=== PATIENT | male | born 1950 | race Caucasian/White ===

== ENCOUNTER 2020-10-06 07:32 | Outpatient (CLI) | payer MEDICARE, SELFPAY ==
--- NOTE | ~2020-10-06 | CT_ITS ---
EXAMINATION: CT chest abdomen pelvis w con DATE: 10/06/2020 08:22 INDICATION: Malignant neoplasm of the descending colon. TECHNIQUE: Computed tomography (CT) of the chest, abdomen, and pelvis was performed with 100 mL Omnip aque 350 intravenous contrast. Automated exposure control and iterative reconstruction technique were employed. The dose-length product was 1269.62 mGy-cm. COMPARISON: CT abdomen and pelvis 10/28/2019 FINDINGS: CHEST CT: The lungs demonstrate mild atelectasis. No pleural effusion. The heart size is normal. There are alex nary artery calcifications. No pericardial effusion. There is bilateral gynecomastia. There is modera te thoracic spondylosis. ABDOMEN/PELVIS CT: The liver and spleen are normal. There are gallstones in the gallbladder, which is normal in size. Th e pancreas, adrenal glands, and right kidney are normal. There is a 3.7 cm cyst in left kidney. There are 4 stones in left kidney measuring up to 9 mm. The prostate is moderately enlarged. There is a le ft inguinal hernia containing fat. There are no dilated loops of bowel. The appendix is normal. There are no pathologically enlarged lymph nodes. There is no free intraperitoneal fluid. There is diastas is of the rectus abdominis muscles. There is a total right hip arthroplasty. There is severe lumbar s pondylosis. IMPRESSION: 1. No evidence of metastatic disease. Reviewed, dictated and finalized at location A. INE BENDER
[2020-10-06 08:14] LABS: Estimated Glomerular Filt Rate 55
== END 2020-10-06 07:33 | disposition home or self-care (01) ==
LOC: ANHIMG 07:49
PROVIDERS: PCP Family Medicine; Visit Provider Nurse Practitioner Adult Health
DX: C18.6 Malignant neoplasm of descending colon (principal); K80.80 Other cholelithiasis without obstruction; N28.1 Cyst of kidney, acquired; N20.0 Calculus of kidney; M62.08 Separation of muscle (nontraumatic), other site; Z96.641 Presence of right artificial hip joint; I25.10 Atherosclerotic heart disease of native coronary artery without angina pectoris; N62 Hypertrophy of breast; M47.814 Spondylosis without myelopathy or radiculopathy, thoracic region
CPT/HCPCS: 71260; 74177; Q9967

== ENCOUNTER 2020-10-08 07:37 | Outpatient (CLI) | payer MEDICARE, SELFPAY ==
--- NOTE | ~2020-10-08 | MR_ITS ---
EXAMINATION: MR brain/brain stem wo con DATE: 10/08/2020 09:00 INDICATION: Facial weakness. Alford's palsy. TECHNIQUE: Magnetic resonance imaging (MRI) of the brain and brainstem was performed without intraven ous contrast. Sequences included sagittal and axial T1-weighted FSE, axial diffusion-weighted FS EPI, axial T2*-weighted GRE, axial T2-weighted FLAIR Propeller, axial T2-weighted Propeller, small field- of-view coronal FIESTA, small kchbk-bc-bklx coronal T1-weighted FSE, and small xixbr-ak-eksd axial T1 -weighted SPGR. Apparent diffusion coefficient (ADC) maps were created. COMPARISON: Brain MRI 08/02/2013 FINDINGS: There are scattered areas of nonspecific increased T2-weighted signal intensity in the cere bral white matter, which is within normal limits for the patient's age. There is no intracranial hemo rrhage, acute infarction, or abnormal intracranial mass lesion. The ventricles are normal in size. Th ere is mucosal thickening in the paranasal sinuses. The orbits are normal. The internal auditory vinita ls and inner and middle ears are normal. There is a trace left mastoid effusion. IMPRESSION: 1. Normal aging brain. Reviewed, dictated and finalized at location B. [facility] ZOO IMPRESSION: 1. Normal aging brain.
== END 2020-10-08 07:38 | disposition home or self-care (01) ==
PROVIDERS: PCP Family Medicine; Visit Provider Nurse Practitioner
DX: R29.810 Facial weakness (principal)
CPT/HCPCS: 70551

== ENCOUNTER → 2021-10-20 00:07 | Outpatient (CLI) | payer MEDICARE, SELFPAY ==
[2021-10-20 17:21] LABS: SARS-CoV-2 RNA PCR Negative (Negative)
== END ==
PROVIDERS: PCP Family Medicine; Visit Provider Internal Medicine Gastroenterology
DX: Z01.812 Encounter for preprocedural laboratory examination (principal); Z20.822 Contact with and (suspected) exposure to COVID-19
CPT/HCPCS: C9803; U0003; U0005

== ENCOUNTER 2021-10-23 00:53 | Day surgery (SDC) | payer MEDICARE, SELFPAY ==
[2021-10-11 13:26] VITALS: BMI 29.9
--- NOTE | 2021-10-23 10:28 | WPDGICN ---
Assessment and Plan Assessment and plan (1) History of rectal cancer: Code(s): Z85.048 - Personal history of other malignant neoplasm of rectum, rectosigmoid junction, and anus Status: Acute Assessment and Plan: Patient has a history of a rectal cancer resected in 2017. He presents today for surveillance colonoscopy. High-fiber diet is advised. Further recommendations will be given after endoscopy. GI Consult Note Consult date/time: 10/23/21 10:28 HPI: Kojo Abreu is a 71 year old male Presents for screening colonoscopy. Patient was found to have a rectal carcinoma in 2017 that was removed. He had normal follow-up colonoscopy 2018. Currently doing well with no evidence of active disease. He states bowel habits returned to normal. His weight is stable. He denies any blood in his stools. Family history is noncontributory. Review of Systems Review of Systems: All systems reviewed & are unremarkable except as noted in HPI and below PMFSH Past Medical History Medical History Abnormal colonoscopy History of gout Hyperlipidemia associated with type 2 diabetes mellitus Hypertension Left-sided Alford's palsy Rectal malignant neoplasm (~09/2017) Type 2 diabetes mellitus with diabetic neuropathy, unspecified (~2012) Surgical History Surgical History History of toe surgery S/P hip replacement (~05/2013) right Family History Family History Other Family history of cardiovascular disease Family history of congestive heart failure Family history of coronary artery disease Family history of gout Family history of osteoarthritis Social History Social History Smoking status: Never smoker Second hand tobacco smoke exposure: No Alcohol intake: current Substance use type: does not use Living arrangements: alone Meds Home Medications and Allergies Home Medications Medication Instructions Recorded Confirmed Type blood sugar diagnostic #100 each 11/16/19 08/27/21 Rx cyanocobalamin (vitamin B-12) 500 500 mcg PO DAILY 11/16/19 10/11/21 History mcg tablet naproxen 500 mg tablet 500 mg PO BID PRN 08/25/20 10/11/21 History metformin 500 mg tablet 1,000 mg PO BID #360 tablet 06/25/21 10/11/21 Rx hydrochlorothiazide 25 mg tablet 25 mg PO DAILY #90 tablet 08/10/21 10/11/21 Rx losartan 100 mg tablet 100 mg PO DAILY #90 tablet 08/13/21 10/11/21 Rx glipizide 2.5 mg PO DAILY 10/11/21 10/11/21 History Allergies Allergy/AdvReac Type Severity Reaction Status Date / Time Yellow Jacket Allergy Unknown Swelling Uncoded 10/23/21 10:27 Exam Narrative: Physical exam reveals patient be alert. Vital signs stable. HEENT exam is unremarkable. Patient is anicteric. Lungs are clear to auscultation and percussion. Heart is without murmur or extra sounds. Abdominal exam bowel sounds are present soft nontender with no organomegaly. Digital external rectal exam is normal.
--- NOTE | 2021-10-23 10:38 | WPDANESEPPF ---
Anes - Initial Pre Proc Eval Procedure: Operation Date: 10/23/21 11:30 Proposed Procedures p Screening Colonoscopy - Paulo Erickson MD Date/Time: 10/23/21 10:38 Surgeon: Paulo Erickson MD Pre Op Diagnosis: hx of rectal ca Patient Data Age: 71 Gender: M Height: 1.83 m Weight: 102.4 kg Allergies Allergy/AdvReac Type Severity Reaction Status Date / Time Yellow Jacket Allergy Unknown Swelling Uncoded 10/23/21 10:27 Home Medications Medication Instructions Recorded Confirmed Type blood sugar diagnostic #100 each 11/16/19 08/27/21 Rx cyanocobalamin (vitamin B-12) 500 500 mcg PO DAILY 11/16/19 10/11/21 History mcg tablet naproxen 500 mg tablet 500 mg PO BID PRN 08/25/20 10/11/21 History metformin 500 mg tablet 1,000 mg PO BID #360 tablet 06/25/21 10/11/21 Rx hydrochlorothiazide 25 mg tablet 25 mg PO DAILY #90 tablet 08/10/21 10/11/21 Rx losartan 100 mg tablet 100 mg PO DAILY #90 tablet 08/13/21 10/11/21 Rx glipizide 2.5 mg PO DAILY 10/11/21 10/11/21 History Patient hx anesthesia problems: none Family hx anesthesia problems: none Results Review: All pre-operative results and documents have been reviewed as part of the pre-operative evaluation. [facility] Past Medical History Medical History Abnormal colonoscopy History of gout Hyperlipidemia associated with type 2 diabetes mellitus Hypertension Left-sided Alford's palsy Rectal malignant neoplasm (~09/2017) Type 2 diabetes mellitus with diabetic neuropathy, unspecified (~2012) Surgical History Surgical History History of toe surgery S/P hip replacement (~05/2013) right Family History Family History Other Family history of cardiovascular disease Family history of congestive heart failure Family history of coronary artery disease Family history of gout Family history of osteoarthritis Social History Social History Smoking status: Never smoker Second hand tobacco smoke exposure: No Alcohol intake: current Substance use type: does not use Living arrangements: alone Anes - Eval Final PreProcedure Day of Procedure 10/23/21 10:38 Patient weight: obese Heart: regular rate and rhythm Lungs: clear to auscultation Airway: Mallampati scale class II Neurological: alert and oriented Last oral intake: >/= 8 hours ASA classification: III Emergent: no Anesthetic plan: proceed Anesthesia type and monitoring: general GIVS and standard monitoring Results Review: All pre-operative results and documents have been reviewed as part of the pre-operative evaluation. Informed Consent: The patient's anesthetic plan and its attendant risks and benefits were discussed with the patient/family/POA. Questions were solicited and answers provided to the satisfaction of the patient/family/POA.
[2021-10-23 10:44] LABS: Glucose Point of Care 159 mg/dl (65-105)
[2021-10-23] MEDS: LACTATED RINGERS 1,000 ML 150 ML IV CONT (10:46)
[2021-10-23 11:48] VITALS: BP 121/82; PULSE 71; RESP 26; O2SAT 99
[2021-10-23 11:58] VITALS: BP 158/98; PULSE 77; RESP 23; O2SAT 100
[2021-10-23 12:08] VITALS: BP 145/99; PULSE 78; RESP 25; O2SAT 100
== END 2021-10-23 12:22 | disposition home or self-care (01) ==
PROVIDERS: PCP Family Medicine; Visit Provider Internal Medicine Gastroenterology
PROC: 0DJD8ZZ Inspection of Lower Intestinal Tract, Via Natural or Artificial Opening Endoscopic (ICD-10-PCS; CPT 45378; principal; 2021-10-23 11:30)
DX: Z12.11 Encounter for screening for malignant neoplasm of colon (principal); D12.3 Benign neoplasm of transverse colon; Z85.048 Personal history of other malignant neoplasm of rectum, rectosigmoid junction, and anus; E11.40 Type 2 diabetes mellitus with diabetic neuropathy, unspecified; I10 Essential (primary) hypertension; E78.5 Hyperlipidemia, unspecified; M10.9 Gout, unspecified; Z79.84 Long term (current) use of oral hypoglycemic drugs; E66.9 Obesity, unspecified; Z68.30 Body mass index [BMI] 30.0-30.9, adult
CPT/HCPCS: 45385; 82948; 88305; C9803; J2704; J7120; U0003; U0005

== ENCOUNTER 2023-06-23 09:39 | Outpatient (CLI) | payer MEDICARE, SELFPAY ==
[2023-06-23 09:57] LABS: Basophils Absolute Auto 0.1 K/mm3 (0.0-0.1); Basophils Percent Auto 0.5 % (0.2-1.2); Eosinophils Absolute Auto 0.4 K/mm3 (0-0.3); Eosinophils Percent Auto 3.9 % (0-4.4); Hematocrit 46.9 % (42.0-52.0); Hemoglobin 15.6 g/dL (14.0-18.0); Immature Granulocyte Absolute 0.03 K/mm3 (0.00-0.031); Immature Granulocyte Percent A 0.3 % (0-0.5); Lymphocytes Absolute Auto 1.85 K/mm3 (0.9-3.2); Lymphocytes Percent Auto 19.6 % (18.3-44.2); Mean Corpuscular HGB Conc 33.3 g/dl (32-36); Mean Corpuscular Hemoglobin 28.6 pg (26-34); Mean Corpuscular Volume 85.9 fl (80-100); Mean Platelet Volume 9.6 fl (7.4-10.4); Monocytes Absolute Auto 0.8 K/mm3 (0.1-0.6); Monocytes Percent Auto 8.2 % (2.6-8.5); Neutrophils Absolute Auto 6.4 K/mm3 (1.3-6.7); Neutrophils Percent Auto 67.5 % (45.5-73.1); Platelet Count Result 241 k/mm3 (150-375); Red Blood Count 5.46 M/mm3 (4.6-6.20); Red Cell Distribution Width 13.1 % (11.5-14.5); White Blood Count 9.4 K/mm3 (4.5-10.0)
[2023-06-23 10:02] LABS: Blood Urea Nitrogen 21 mg/dL (8-26); Carbon Dioxide 31 mmol/L (22-30); Chloride 99 mmol/L (98-109); Estimated Glomerular Filt Rate 60; Glucose 174 mg/dL (70-105); Sodium 141 mmol/L (138-146)
[2023-06-23 10:33] LABS: Alanine Aminotransferase 146 U/L (6-50); Albumin Level 4.4 g/dL (3.5-5.1); Alkaline Phosphatase 47 U/L (38-126); Anion Gap 7 mmol/L (8-16); Aspartate Amino Transferase 78 U/L (17-59); Bilirubin,Total 0.8 mg/dL (0.2-1.3); Blood Urea Nitrogen 20 mg/dL (9-20); Calcium 9.5 mg/dL (8.4-10.2); Carbon Dioxide 33 mmol/L (22-30); Chloride 99 mmol/L (98-107); Estimated Glomerular Filt Rate > 60; Glucose 170 mg/dL (65-110); Sodium 139 mmol/L (137-145)
== END 2023-06-23 09:40 | disposition home or self-care (01) ==
LOC: ANHLAB 09:41
PROVIDERS: PCP Family Medicine; Visit Provider Internal Medicine Hematology & Oncology
DX: C18.6 Malignant neoplasm of descending colon (principal)
CPT/HCPCS: 36415; 80047; 80053; 85025

== ENCOUNTER 2024-08-31 07:57 | Outpatient (CLI) | payer MEDICARE, SELFPAY ==
[2024-08-31 20:18] LABS: Basophils Absolute Auto 0.1 K/mm3 (0.0-0.1); Basophils Percent Auto 0.7 % (0.2-1.2); Eosinophils Absolute Auto 0.3 K/mm3 (0-0.3); Eosinophils Percent Auto 3.4 % (0-4.4); Hematocrit 48.8 % (42.0-52.0); Hemoglobin 15.7 g/dL (14.0-18.0); Immature Granulocyte Absolute 0.03 K/mm3 (0.00-0.031); Immature Granulocyte Percent A 0.4 % (0-0.5); Lymphocytes Absolute Auto 1.61 K/mm3 (0.9-3.2); Lymphocytes Percent Auto 18.9 % (18.3-44.2); Mean Corpuscular HGB Conc 32.2 g/dl (32-36); Mean Corpuscular Hemoglobin 28.8 pg (26-34); Mean Corpuscular Volume 89.4 fl (80-100); Mean Platelet Volume 10.4 fl (7.4-10.4); Monocytes Absolute Auto 0.7 K/mm3 (0.1-0.6); Monocytes Percent Auto 8.5 % (2.6-8.5); Neutrophils Absolute Auto 5.8 K/mm3 (1.3-6.7); Neutrophils Percent Auto 68.1 % (45.5-73.1); Platelet Count Result 228 k/mm3 (150-375); Red Blood Count 5.46 M/mm3 (4.6-6.20); Red Cell Distribution Width 13.8 % (11.5-14.5); White Blood Count 8.5 K/mm3 (4.5-10.0)
[2024-08-31 21:13] LABS: Microalbumin Urine Random 13.5 mg/L (0-16.7)
[2024-08-31 21:15] LABS: Alanine Aminotransferase 56 U/L (6-50); Albumin Level 4.4 g/dL (3.5-5.1); Alkaline Phosphatase 45 U/L (38-126); Anion Gap 12 mmol/L (4-12); Aspartate Amino Transferase 35 U/L (17-59); Bilirubin,Total 0.8 mg/dL (0.2-1.3); Blood Urea Nitrogen 23 mg/dL (9-20); Calcium 9.6 mg/dL (8.4-10.2); Carbon Dioxide 30 mmol/L (22-30); Chloride 98 mmol/L (98-107); Cholesterol 158 mg/dL (0-200); Estimated Glomerular Filt Rate > 60; Glucose 162 mg/dL (65-110); HDL Direct 37 mg/dL; Potassium 4.6 mmol/L (3.4-5.0); Sodium 140 mmol/L (137-145); Triglycerides 170 mg/dL (<150)
[2024-08-31 21:26] LABS: LDL Cholesterol Direct 80 mg/dL
[2024-08-31 21:34] LABS: Creatinine Urine 124.5 mg/dL; MALB Creatinine Ratio 10.8 mg/g (0-30)
[2024-08-31 21:44] LABS: Prostate Specific Antigen 1.6 ng/mL (< OR = 4.0)
[2024-08-31 22:37] LABS: Hemoglobin A1C 7.3 % (<5.7)
[2024-09-03 12:54] LABS: Vitamin D 1,25 (OH)2 Total 32 pg/mL (18-72); Vitamin D2 1,25 (OH)2 <8 pg/mL; Vitamin D3 1,25 (OH)2 32 pg/mL
== END 2024-08-31 07:58 | disposition home or self-care (01) ==
LOC: ANHGOSHLAB 07:58
PROVIDERS: PCP Family Medicine; Visit Provider Nurse Practitioner Family
DX: E03.9 Hypothyroidism, unspecified (principal); E11.40 Type 2 diabetes mellitus with diabetic neuropathy, unspecified; E11.69 Type 2 diabetes mellitus with other specified complication; E78.5 Hyperlipidemia, unspecified; E53.8 Deficiency of other specified B group vitamins; E55.9 Vitamin D deficiency, unspecified; I10 Essential (primary) hypertension; R74.8 Abnormal levels of other serum enzymes; Z12.5 Encounter for screening for malignant neoplasm of prostate; Z85.048 Personal history of other malignant neoplasm of rectum, rectosigmoid junction, and anus
CPT/HCPCS: 36415; 80053; 80061; 82043; 82607; 82652; 83036; 84153; 84443; 85025; G0103

== ENCOUNTER 2025-03-02 08:13 | Outpatient (CLI) | payer MEDICARE, SELFPAY ==
--- OUTSIDE RECORDS SUMMARY | 2025-03-02 08:19 | XMS_ITS | Clinical Summary ---
Author Organization [facility] Address [address] [place] [address] Care Team Providers Care Optical Effects Layout Person Name Role Phone Alicia Bell MD Primary Care Provider Allergies No known active allergies Medications metFORMIN (GLUCOPHAGE) 500 mg tablet Take 1,000 mg by mouth 2 times daily with meals. Active losartan-hydroCH LOROthiazide (HYZAAR) 100-25 mg tablet Take 1 Tablet by mouth daily. Active losartan (COZAAR) 100 mg tablet TK 1 T PO QD 08/18/2019 Active hydroCHLOROthiaz danyelle 25 mg tablet TK 1 T PO QD 08/18/2019 Active glipiZIDE (GLUCOTROL XL) 2.5 mg Extended Release 24 hour tablet Take 2.5 mg by mouth daily. 02/16/2021 Active Active Problems Problem Noted Date Diagnosed Date Alford's palsy 10/02/2020 Malignant neoplasm of descending colon 7 Encounters Date Type Department Care Team Description 12/22/2024 External Device Data [facility] ABSTRACTION Provider, Abstract 12/21/2024 External Device Data [facility] ABSTRACTION Provider, Abstract from Last 3 Months Family History Medical History Relation Name Comments Heart Disease Father Heart Disease Mother Other Sister Relation Name Status Comments Father Mother Sister Alive Social History Tobacco Use Types Packs/Day Years Used Date Smoking Tobacco: Never Smokeless Tobacco: Never Tobacco Cessation:Counseling Given: Not Answered Alcohol Use Standard Drinks/Week Comments No 0 (1 standard drink = 0.6 oz pur e alcohol) Sex and Gender Information Value Date Recorded Sex Assigned at Not on file 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 Gender Identity Not on file Sexual Orientation Not on file Last Filed Vital Signs Vital Sign Reading Time Taken Comments Blood Pressure 145/89 06/28/2024 9:51 AM CDT Pulse 98 06/28/2024 9:48 AM CDT Temperature 36.7 C (98 F) 06/28/2024 9:48 AM CDT Respiratory Rate 14 06/23/2023 9:56 AM CDT Oxygen Saturation 96% 06/28/2024 9:48 AM CDT Inhaled Oxygen Concentration - - Weight 99.8 kg (220 lb) 06/28/2024 9:48 AM CDT Height 182.9 cm (6') 06/24/2022 10:11 AM CDT Body Mass Index 29.84 06/24/2022 10:11 AM CDT Plan of Treatment Upcoming Encounters Date Type Department Care Team (Late st Contact Info) Description 07/11/2025 10:00 AM CDT Office Visit [facility] - [place] [address] [facility] [address] [place] [address] Antonio Bailey MD [address] [facility] [address] [place] [address] Health Maintenance Due Date Last Done Comments DTAP/TDAP/TD VACCINES (1 - Tdap) 1969 PNEUMOCOCCAL VACCINE 50+ YEARS (1 of 1 - PCV) 09/02/20 00 ZOSTER VACCINE (1 of 2) 2000 INFLUENZA VACCINE (#1) 2024 RSV VACCINE (60+ or ) (1 - 1-dose 75+ series) 2025 Insurance [facility] [id number] [facility] [id number] Care Teams Optical Effects Layout Person Relationship Specialty Start Date End Date Alicia Bell MD [address] [place] [address] PCP - General Family Practice 06/23/23
--- OUTSIDE RECORDS SUMMARY | 2025-03-02 08:19 | XMS_ITS | Clinical Summary ---
Author Organization [facility] Address [address] [place] [address] Care Team Providers Care General Dentist/Owner Name Role Phone Unavailable Primary Care Provider Unavailabl e Social History Tobacco Use Types Packs/Day Years Used Date Smoking Tobacco: Never Assessed Sex and Gender Information Value Date Recorded Sex Assigned at Not on file Legal Sex Male 5:45 PM CDT Gender Identity Not on file Sexual Orientation Not on file Plan of Treatment Health Maintenance Due Date Last Done Comments Colorectal Cancer Screening Colonoscopy (10 Years) 1950 Hepatitis C 1968 DTaP, Tdap and Td Vaccines ( 1 - Tdap) 1969 Pneumococcal Vaccine: 50+ Ye ars (1 of 1 - PCV) 2000 Zoster Vaccines (1 of 2) 2000 COVID-19 Vaccine (1 - 2023-2 5 season) 2024 RSV Immunization or 60+ Years (1 - 1-dose 75+ series) 2025 Meningococcal B Vaccine Aged Out No l onger eligible based on patient's age to complete this topic Meningococcal Vaccine Aged Out No mikayla alejandro eligible based on patient's age to complete this topic RSV Immunizations Under 20 Months Aged Out No longer eligible based on patient's age to complete this topic
--- OUTSIDE RECORDS SUMMARY | 2025-03-02 08:19 | XMS_ITS ---
Author Name Auto Generated, Auto Generated Organization [facility] Address [address] [place] [address] Phone [phone] Care Team Providers Care Mailroom Associate Name Role Phone Johan Mayers Unavailable Peyton Olivera Unavailable [phone] Functional Status No Results Mental Status No Results Allergies and Intolerances Name Onset Date Reaction Severity No Known Drug Allergies (Allergy) FriDec 17 16: 10:00 EST 2016 Problems No Known Problems Reason for Referral
[2025-03-02 20:09] LABS: Basophils Absolute Auto 0.1 K/mm3 (0.0-0.1); Basophils Percent Auto 0.8 % (0.2-1.2); Eosinophils Absolute Auto 0.3 K/mm3 (0-0.3); Eosinophils Percent Auto 3.8 % (0-4.4); Hematocrit 47.1 % (42.0-52.0); Hemoglobin 15.2 g/dL (14.0-18.0); Immature Granulocyte Absolute 0.03 K/mm3 (0.00-0.031); Immature Granulocyte Percent A 0.3 % (0-0.5); Mean Corpuscular HGB Conc 32.3 g/dl (32-36); Mean Corpuscular Hemoglobin 28.2 pg (26-34); Mean Corpuscular Volume 87.4 fl (80-100); Monocytes Absolute Auto 0.8 K/mm3 (0.1-0.6); Monocytes Percent Auto 8.3 % (2.6-8.5); Neutrophils Percent Auto 65.8 % (45.5-73.1); Platelet Count Result 232 k/mm3 (150-375); Red Blood Count 5.39 M/mm3 (4.6-6.20); Red Cell Distribution Width 13.8 % (11.5-14.5); White Blood Count 9.1 K/mm3 (4.5-10.0)
[2025-03-02 20:55] LABS: Microalbumin Urine Random 56.8 mg/L (0-16.7)
[2025-03-02 20:56] LABS: MALB Creatinine Ratio 48.1 mg/g (0-30)
[2025-03-02 21:33] LABS: Alanine Aminotransferase 88 U/L (6-50); Albumin Level 4.4 g/dL (3.5-5.1); Alkaline Phosphatase 51 U/L (38-126); Anion Gap 11 mmol/L (4-12); Aspartate Amino Transferase 58 U/L (17-59); Bilirubin,Total 0.9 mg/dL (0.2-1.3); Blood Urea Nitrogen 22 mg/dL (9-20); Calcium 9.3 mg/dL (8.4-10.2); Carbon Dioxide 28 mmol/L (22-30); Chloride 99 mmol/L (98-107); Cholesterol 180 mg/dL (0-200); Estimated Glomerular Filt Rate > 60; Glucose 184 mg/dL (65-110); HDL Direct 37 mg/dL; Sodium 138 mmol/L (137-145); Triglycerides 184 mg/dL (<150)
[2025-03-02 21:44] LABS: LDL Cholesterol Direct 81 mg/dL
[2025-03-02 22:18] LABS: Hemoglobin A1C 8.1 % (<5.7)
== END 2025-03-02 08:14 | disposition home or self-care (01) ==
LOC: ANHGOSHLAB 08:14
PROVIDERS: PCP Family Medicine; Visit Provider Nurse Practitioner Family
DX: E53.8 Deficiency of other specified B group vitamins (principal); E11.9 Type 2 diabetes mellitus without complications; E78.5 Hyperlipidemia, unspecified; I10 Essential (primary) hypertension
CPT/HCPCS: 36415; 80053; 80061; 82043; 82607; 83036; 85025

== ENCOUNTER 2025-09-13 07:59 | Outpatient (CLI) | payer MEDICARE, SELFPAY ==
[2025-09-13 13:06] LABS: Hematocrit 45.9 % (42.0-52.0); Hemoglobin 14.7 g/dL (14.0-18.0); Immature Granulocyte Percent A 0.3 % (0-0.5); Lymphocytes Absolute Auto 1.47 K/mm3 (0.9-3.2); Mean Corpuscular HGB Conc 32.0 g/dl (32-36); Mean Corpuscular Hemoglobin 28.1 pg (26-34); Mean Corpuscular Volume 87.6 fl (80-100); Nucleated Red Blood Cells Absolute Auto 0.000 K/mm3 (0.0-0.012); Nucleated Red Blood Cells Perc 0.0 % (0.0-0.2); Platelet Count Result 241 k/mm3 (150-375); Red Blood Count 5.24 M/mm3 (4.6-6.20); White Blood Count 8.7 K/mm3 (4.5-10.0)
[2025-09-13 15:10] LABS: Hemoglobin A1C 7.6 % (<5.7)
[2025-09-13 15:16] LABS: Alanine Aminotransferase 46 U/L (6-50); Albumin Level 4.1 g/dL (3.5-5.1); Alkaline Phosphatase 53 U/L (38-126); Anion Gap 8 mmol/L (4-12); Aspartate Amino Transferase 33 U/L (17-59); Bilirubin,Total 0.8 mg/dL (0.2-1.3); Blood Urea Nitrogen 22 mg/dL (9-20); Calcium 9.2 mg/dL (8.4-10.2); Carbon Dioxide 29 mmol/L (22-30); Chloride 98 mmol/L (98-107); Cholesterol 146 mg/dL (0-200); Estimated Glomerular Filt Rate > 60; Glucose 206 mg/dL (65-110); HDL Direct 31 mg/dL; Potassium 4.0 mmol/L (3.4-5.0); Sodium 135 mmol/L (137-145); Total Protein 7.3 g/dL (6.3-8.2); Triglycerides 165 mg/dL (<150)
[2025-09-13 15:46] LABS: Prostate Specific Antigen 1.4 ng/mL (< OR = 4.0)
[2025-09-13 16:05] LABS: Vitamin B12 518.0 pg/mL (239-931)
[2025-09-13 16:23] LABS: Thyroid Stimulating Hormone Reflex 1.620 uIU/mL (0.465-4.68)
== END 2025-09-13 08:00 | disposition home or self-care (01) ==
PROVIDERS: PCP Family Medicine; Visit Provider Nurse Practitioner Family
DX: E55.9 Vitamin D deficiency, unspecified (principal); E11.9 Type 2 diabetes mellitus without complications; I10 Essential (primary) hypertension; E78.5 Hyperlipidemia, unspecified; Z12.5 Encounter for screening for malignant neoplasm of prostate; E53.8 Deficiency of other specified B group vitamins
CPT/HCPCS: 36415; 80053; 80061; 82306; 82607; 83036; 84153; 84443; 85025; G0103